=== PATIENT | female | born 1985 | race American Indian/Alaskan Native ===

== ENCOUNTER 2017-05-18 17:45 | Outpatient (CLI) | payer OTHER ==
[2017-05-18 18:28] VITALS: BP 121/80
== END 2017-05-18 21:20 | disposition home or self-care (01) ==
LOC: TRG 17:45
PROVIDERS: ATTEND Obstetrics & Gynecology
DX: O47.1 False labor at or after 37 completed weeks of gestation (principal); Z3A.39 39 weeks gestation of pregnancy